=== PATIENT | female | born 1995 | race Caucasian/White ===

== ENCOUNTER 2019-06-09 19:44 | Emergency (ER) | payer MEDICAID ==
[~2019-06-09] VITALS: Ht 167.6 cm; Wt 102.1 kg
[2019-06-09 20:18] VITALS: BP 130/82; Ht 167.6 cm; Wt 102.1 kg
== END 2019-06-09 22:36 | disposition home or self-care (01) ==
LOC: ED 19:44
DX: O23.591 Infection of other part of genital tract in pregnancy, first trimester (principal); H92.02 Otalgia, left ear; Z3A.00 Weeks of gestation of pregnancy not specified

== ENCOUNTER 2019-10-09 19:16 | Emergency (ER) | payer MEDICAID ==
[~2019-10-09] VITALS: Ht 167.6 cm; Wt 110.2 kg
[2019-10-09 19:50] VITALS: BP 151/92; Ht 167.6 cm; Wt 110.2 kg
== END 2019-10-09 20:28 | disposition home or self-care (01) ==
LOC: ED 19:16
DX: S00.31XA Abrasion of nose, initial encounter (principal); X58.XXXA Exposure to other specified factors, initial encounter; Y93.89 Activity, other specified; Y92.89 Other specified places as the place of occurrence of the external cause; Y99.8 Other external cause status

== ENCOUNTER 2019-11-02 13:20 | Emergency (ER) | payer MEDICAID ==
[~2019-11-02] VITALS: Ht 167.6 cm; Wt 109.8 kg
[2019-11-02 13:52] VITALS: Ht 167.6 cm; Wt 109.8 kg
[2019-11-02 16:56] VITALS: BP 142/78
== END 2019-11-02 16:56 | disposition home or self-care (01) ==
LOC: ED 13:20
DX: O26.892 Other specified pregnancy related conditions, second trimester (principal); O99.512 Diseases of the respiratory system complicating pregnancy, second trimester; B34.9 Viral infection, unspecified; K52.9 Noninfective gastroenteritis and colitis, unspecified; Z3A.26 26 weeks gestation of pregnancy
CPT/HCPCS: 87804; J2765; J7030; J7512

== ENCOUNTER 2020-03-20 18:27 | Emergency (ER) | payer MEDICAID, SELFPAY ==
[~2020-03-20] VITALS: Ht 165.1 cm; Wt 109.3 kg
[2020-03-20 18:34] VITALS: Ht 165.1 cm; Wt 109.3 kg
[2020-03-20 20:42] VITALS: BP 117/69
== END 2020-03-20 20:42 | disposition home or self-care (01) ==
LOC: ED 18:27
DX: J45.909 Unspecified asthma, uncomplicated (principal); J02.9 Acute pharyngitis, unspecified; Z20.828 Contact with and (suspected) exposure to other viral communicable diseases
CPT/HCPCS: Q0092; U0003-CS

== ENCOUNTER 2020-07-14 12:51 | Emergency (ER) | payer MEDICAID ==
[~2020-07-14] VITALS: Ht 170.2 cm; Wt 108.9 kg
[2020-07-14 13:15] VITALS: Ht 170.2 cm; Wt 108.9 kg
[2020-07-14 14:39] VITALS: BP 132/93
== END 2020-07-14 14:39 | disposition home or self-care (01) ==
LOC: ED 12:51
DX: S93.601A Unspecified sprain of right foot, initial encounter (principal); J45.909 Unspecified asthma, uncomplicated; W01.0XXA Fall on same level from slipping, tripping and stumbling without subsequent striking against object, initial encounter; Y93.89 Activity, other specified; Y92.89 Other specified places as the place of occurrence of the external cause; Y99.8 Other external cause status
CPT/HCPCS: Q0092

== ENCOUNTER 2020-07-26 20:36 | Emergency (ER) | payer MEDICAID ==
[~2020-07-26] VITALS: Ht 167.6 cm; Wt 112.2 kg
[2020-07-26 20:55] VITALS: Ht 167.6 cm; Wt 112.2 kg
[2020-07-26 21:14] VITALS: BP 134/87
== END 2020-07-26 21:14 | disposition home or self-care (01) ==
LOC: ED 20:36
DX: H00.011 Hordeolum externum right upper eyelid (principal); J45.909 Unspecified asthma, uncomplicated

== ENCOUNTER 2020-08-30 15:14 | Emergency (ER) | payer MEDICAID ==
[~2020-08-30] VITALS: Ht 170.2 cm; Wt 112.9 kg
[2020-08-30 15:45] VITALS: BP 149/86; Ht 170.2 cm; Wt 112.9 kg
== END 2020-08-30 18:02 | disposition left against medical advice (07) ==
LOC: ED 15:14
DX: Z53.21 Procedure and treatment not carried out due to patient leaving prior to being seen by health care provider (principal)